=== PATIENT | female | born 2005 | race Caucasian/White ===

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

== ENCOUNTER 2024-06-20 22:49 | Emergency (ER) | payer OTHER, SELFPAY ==
--- OUTSIDE RECORDS SUMMARY | 2024-06-20 22:54 | XMS REPORT | Continuity of Care Document ---
Author Name Unknown Address [address] [facility] [address] [place] [address] [facility] Address [address] [facility] 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 Cost Estimator Name Role Phone PORFIRIO Bonner [facility], [facility] Care Physician Unavailable Amanda Light Attending Clinician [phone] AMANDA MCCURDY Attending Clinician Unavailabl e SAV Attending Clinician Unavaila ble SAV Admitting Clinician Unavaila ble Payers Payer Name Policy Type Policy Number Effective Date Expirati on Date Source CIGILENE II [id number] 2021 00:00:00 Problems Condition Name Condition Details Condition Category Status Onset Date Resolution Date Last Treatment Date Treating Clinician Comments Source No known active problems No known active problems Disease [facility] Allergies, Adverse Reactions, Alerts Allergy Name Allergy Type Status Severity Reaction(s) Onset Date Inactive Date Treating Clinician Comments Source NO KNOWN ALLERGIE S Drug Class Active [facility] Social History Social Habit Start Date Stop Date Quantity Comments Source Exposure to SARS-CoV-2 (event) Not sure [facility] Sex Assigned At 2005 00:00:00 2005 00:00:00 [facility] Smoking Status Start Date Stop Date Source Unknown if ever smoked Unive [facility] Medications Ordered Medication Name Filled Medication Name Start Date Stop Date Current Medication? Ordering Clinician Indication Dosage Frequency Signature (SIG) Comments Components Source meclizine 25 mg tablet 11-04 00:00: 00 Yes [id number] 25mg Take 1 tablet by mouth 3 (three) times daily as needed for Dizziness. [facility] ARIPiprazol e 15 mg tablet 10-12 00:00: 00 Yes 15mg Take 15 mg by mouth daily. [facility] escitalopra m oxalate 20 mg tablet 10-05 00:00: 00 Yes 20mg Take 20 mg by mouth at bedtime. [facility] Vital Signs Vital Name Observation Time Observation Value Comments Evert becker Systolic blood pressure 2021-11-04 17:12:00 111 mm[Hg] [facility] Diastolic blood pressure 2021-11-04 17:12:00 66 mm[Hg] [facility] Heart rate 2021-11-04 17:12:00 76 /min [facility] Body temperature 2021-11-04 17:12:00 36.94 Alyx [facility] Respiratory rate 2021-11-04 17:12:00 18 /min [facility] Body height 2021-11-04 17:12:00 153 cm [facility] Body weight 2021-11-04 17:12:00 86.909 kg [facility] BMI 2021-11-04 17:12:00 37.13 kg/m2 [facility] Body mass index (BMI) [Percentile] Per age and sex 2021-11-04 17:12:00 98.65 % [facility] Oxygen saturation in Arterial blood by Pulse oximetry 2021-11-04 17:12:00 100 /min [facility] Procedures Procedure Date / Time Performed Performing Clinicia n Source POCT MOLECULAR STREP 2021-11-04 17:19:00 Lily Mccurdy [facility] Encounters Start Date/Time End Date/Time Encounter Type Admission Type Attending Clinicians Care Facility Care Department Encounter ID Source 2022-09-07 15:48:10 2022-09-07 15:48:10 Outpatient [facility] [id number] Porfirio Marsh 2022-05-11 14:53:11 2022-05-11 14:53:11 Outpatient [facility] [id number] Porfirio Marsh 2022-05-09 08:01:24 2022-05-09 08:01:[address] [facility] [id number] Porfirio Marsh 2021-11-04 12:00:00 2021-11-04 12:56:59 [facility] [id number] [facility] 2021-11-04 12:00:00 2021-11-04 12:56:59 Outpatient R CALLI, [facility] [id number] [facility] 2021-08-24 04:37:00 2021-08-24 04:37:00 Outpatient AKANKSHA CONTRERAS [facility] [id number] [facility] Results Test Description Test Time Test Comments Results Result Co mments Source COMPREHENSIVE METABOLIC [id number] 03:01:08* Test Item Value Reference Range Interpretation Comme nts GLUCOSE (test code = 2217) 84 MG/DL 70-99 BUN (test code = 2208) 7 MG/DL 5-18 CREATININE (test code = 2214) 0.65 MG/DL 0.50-1.10 eGFR (2020 CKD-EPI) (test code = 84758) NO CALC ML/MIN/1.73 >60 NOTE: 2020 CKD-EPI [...] RATIO 1.0-2.6 BILIRUBIN, TOTAL (test code = 7) 0.5 MG/DL See_Comment [Automated me ssage] The system which generated this result transmitted reference range: <=1.2. The reference range was not used to interpret this result as normal/abnormal. ALKALINE PHOSPHATASE (test code = 2203) 88 U/L 53-138 AST (test code = 2218) 16 U/L 9-48 ALT (test code = 2219) 19 U/L 5-45 LIPID [id number] 03:01:08* Test Item Value Reference Range Interpretation Comme nts CHOLESTEROL (test code = 0) 138 MG/DL <170 TRIGLYCERIDES (test code = 223) 90 MG/DL <90 H HDL CHOLESTEROL (test code = 0) 36 MG/DL >45 L CALC LDL CHOL (test code = 2236) 84 MG/DL <110 NOTE: CALCULATED LDL IS BASED ON EARLINE-POLANCO METHOD WHICHINCLUDES ADJUSTABLE TRIGLYCERIDE:VLDL CHOLESTEROL RATIO.THIS FACTOR VARIES BY MEASURED TRIGLYCERIDE AND NON-HDLCHOLESTEROL CONCENTRATIONS WITH INCREASED CALCULATED LDL SEENIN HIGHER TRIGLYCERIDE OR LOWER NON-HDL SPECIMENS. FOR MOREINFORMATION, SEE CLIENT ANNOUNCEMENT AT [email or web address] RISK RATIO LDL/HDL (test code = 2238) 2.33 RATIO <3.22 HEMOGLOBIN [id number] 02:23:14* Test Item Value Reference Range Interpretation Comme nts HEMOGLOBIN A1c (test code = 22899) 5.2 % 4.2-5.6 CBC W/AUTO DIFF WITH [id number] 02:02:15* Test Item Value Reference Range Interpretation [...] = 1065) 0.0 /100 WBC'S See_Comment [Automated Claritya ge] The system which generated this result [...] 0.00-0.10 ABS NUCLEATED RBCS (test code = 42422) 0.00 K/UL 0.00-0.13 POCT MOLECULAR [id number] 17:29:54* Test Item Value Reference Range Interpretation Comme nts POCT Molecular Strep (test c ode = 96497-2) Negative Negative Lab Interpretation (test cod e = 21405-1) Normal [facility]
[2024-06-20] MEDS ORDERED: KETOROLAC 30 MG/ML INJ ONE (23:48)
[2024-06-20] MEDS ORDERED: ONDANSETRON 4 MG/2 ML VIAL ONE (23:48)
[2024-06-20] MEDS ORDERED: NA CHLORIDE 0.9% 1,000 ML ONE (23:49)
[2024-06-21 00:10] LABS: Specific Gravity 1.016 (1.005-1.030); Sqamous Epithelial <5 /HPF (None Seen); Urine Bacteria None Seen /HPF (<20); Urine Bilirubin NEGATIVE (Negative); Urine Blood 3+ (Negative); Urine Clarity Turbid (Clear); Urine Color Light-Yellow (Yellow); Urine Culture Reflex Order NOT NEEDED; Urine Glucose NEGATIVE (Negative); Urine Ketones 1+ (Negative); Urine Microscopic Reflex YN ORDER UMIC; Urine Mucus Slight /HPF (None Seen); Urine Nitrite NEGATIVE (Negative); Urine Protein TRACE (Negative); Urine Urobilinogen Normal (Normal); Urine WBC <5 /HPF (<5); Urine pH 5.5 (5.0-7.0)
[2024-06-21 00:11] LABS: Specific Gravity 1.016 (1.005-1.030)
[2024-06-21 00:14] LABS: Absolute Eosinophils 0.1 K/uL (0-0.5); Absolute Lymphocytes (CBC) 2.6 K/uL (0.7-4.9); Absolute Monocytes 0.7 K/uL (0.1-1.3); Absolute Neutrophil 5.9 K/uL (1.8-8.0); Basophils % 0.4 % (0-1.3); Hemoglobin 15.9 g/dL (12.0-15.0); Lymphocytes % 27.6 % (15.3-44.8); MCH 29.6 pg (27.0-35.0); MCHC 33.1 g/dL (32.0-36.0); MCV 89.3 fL (80-100); MPV 10.9 fL (7.6-11.3); Monocytes % 7.8 % (3.3-12.3); Neutrophils % 63.2 % (41.7-73.7); Platelets 193 thou/uL (152-406); RBC Red Blood Cell Count 5.38 M/uL (3.86-4.86); Red Cell Distribution Width 13.7 % (12.1-15.2)
[2024-06-21] MEDS ORDERED: NA CHLORIDE 0.9% 100 ML ONE (00:22)
[2024-06-21] MEDS ORDERED: METHOCARBAMOL 1,000 MG/10 ML VIAL ONE (00:22)
[2024-06-21 00:28] LABS: Albumin 4.4 g/dL (3.4-5.0); Albumin/Globulin Ratio 1.1 (1.1-1.8); Anion Gap 8.1 mEq/L (5.0-15.0); Bilirubin Total 0.6 mg/dL (0.2-1.0); Potassium 3.1 mEq/L (3.5-5.1); Protein, Total 8.4 g/dL (6.4-8.2)
--- NOTE | 2024-06-21 01:28 | EDPHYS ---
Physician Documentation [facility] Name: Jazmín Tobin Age: 18 yrs Sex: Female : 2005 Arrival Date: 06/20/2024 Time: 22:49 Bed 20 Private MD: ED Physician Ant Zamudio HPI: 06/20 23:45 This 18 yrs old Female presents to ER via Ambulatory with complaints of Low Back Pain. cp 23:45 The patient presents with pain that is acute, with no known mechanism of injury. The cp symptoms are located in the right mid back and right flank. The pain does not radiate. 23:45 The problem was sustained from unknown cause. cp 23:45 Onset: The symptoms/episode began/occurred yesterday. Modifying factors: the patient cp symptoms are aggravated by movement. Associated signs and symptoms: Pertinent negatives: constipation, dysuria, fever, hematuria, incontinence, numbness, weakness. Severity of symptoms: in the emergency department the symptoms are unchanged, despite home interventions. 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 - Infectious Disease History:: Denies. - Social history:: Smoking status: Reported history of juuling and/or vaping. ROS: 23:50 Constitutional: Negative for body aches, chills, fever, poor PO intake, cp 23:50 Eyes: Negative for injury, pain, redness, and discharge, cp 23:50 ENT: Negative for drainage from ear(s), ear pain, sore throat, difficulty swallowing, difficulty handling secretions, 23:50 Cardiovascular: Negative for chest pain, 23:50 Respiratory: Negative for cough, shortness of breath, wheezing, 23:50 Abdomen/GI: Negative for abdominal pain, vomiting, diarrhea, constipation, 23:50 Back: Positive for flank pain, on the right, of the right mid back, Negative for injury or acute deformity, decreased range of motion, 23:50 : Negative for urinary symptoms, 23:50 Neuro: Negative for altered mental status, dizziness, headache, weakness, 23:50 All other systems are negative, Exam: 23:55 Constitutional: The patient appears in no acute distress, alert, awake, non-toxic, well cp developed, well nourished, 23:55 Head/Face: Normocephalic, atraumatic. cp 23:55 Eyes: Periorbital structures: appear normal, Conjunctiva: normal, no exudate, no injection, Sclera: no appreciated abnormality, Lids and lashes: appear normal, bilaterally, 23:55 ENT: External ear(s): are unremarkable, Nose: is normal, Mouth: Lips: moist, Oral mucosa: moist, Posterior pharynx: Airway: no evidence of obstruction, patent, 23:55 Neck: ROM/movement: is normal, is supple, without pain, no range of motions limitations, 23:55 Chest/axilla: Inspection: normal, 23:55 Cardiovascular: Rate: normal, Rhythm: regular, Edema: is not appreciated, 23:55 Respiratory: the patient does not display signs of respiratory distress, Respirations: normal, no use of accessory muscles, no retractions, labored breathing, is not present, Breath sounds: are clear throughout, no decreased breath sounds, no stridor, no wheezing, 23:55 Abdomen/GI: Inspection: abdomen appears normal, Palpation: abdomen is soft and non-tender, in all quadrants, 23:55 Back: pain, that is moderate, of the right mid back, 23:55 Neuro: Gait: is steady, at a normal pace, without difficulty, Vital Signs: 23:17 BP 143 / 80; Pulse 78; Resp 18; Temp 98.2; Pulse Ox 100% ; Weight 74.34 kg; os 11 00:00 BP 122 / 76; Pulse 76; Resp 17; Temp 98(O); Pulse Ox 100% on R/A; Pain 8/10; rg5 01:04 BP 112 / 79; Pulse 80; Resp 17; Temp 98; Pulse Ox 100% on R/A; Pain 0/10; rg5 11 00:00 Pain Scale: Adult rg5 01:04 Pain Scale: Adult rg5 MDM: 06/20 23:34 Medical Screening Exam initiated cp 06/21 00:00 Differential diagnosis: sciatica, Herniated disc UTI, pyelonephritis, kidney stone, cp muscle strain. 01:26 Data reviewed: vital signs, nurses notes, lab test result(s), radiologic studies, CT cp scan, and as a result, I will discharge patient. 01:26 I considered the following discharge prescriptions or medication management in the emergency department Medications were administered in the Emergency Department. See MAR. Counseling: I had a detailed discussion with the patient and/or guardian regarding the historical points, exam findings, and any diagnostic results supporting the discharge/admit diagnosis, lab results, radiology results, to return to the emergency department if symptoms worsen or persist or if there are any questions or concerns that arise at home. Response to treatment: the patient's symptoms have markedly improved after treatment, and as a result, I will discharge patient. 06/20 23:38 Order name: CBC with Diff; Complete Time: 00:16 06/21 00:16 Interpretation: Normal except: RBC 5.38; HGB 15.9; HCT 48.0. 06/20 23:38 Order name: CMP; Complete Time: 00:31 06/21 00:31 Interpretation: Normal except: K 3.1; GLUC 136; AST 14; TP 8.4; GLOB 4.0. 06/20 23:38 Order name: Lipase; Complete Time: 00:31 06/20 23:38 Order name: Test, Urine; Complete Time: 00:16 06/20 23:38 Order name: Urinalysis w/ reflexes; Complete Time: 00:16 06/21 00:17 Order name: CT Stone Protocol 06/20 23:38 Order name: IV Saline Lock; Complete Time: 23:51 06/20 23:38 Order name: Labs collected and sent; Complete Time: 23:51 Administered Medications: 00:05 Drug: TORadol - Ketorolac IVP 15 mg IVP once; may give if test negative rg5 Route: IVP; Site: left antecubital; 00:27 Follow up: Response: No adverse reaction; Pain is decreased rg5 00:05 Drug: Ondansetron IVP 4 mg IVP once; over 2 minutes Route: IVP; Site: left antecubital; rg5 00:27 Follow up: Response: No adverse reaction rg5 00:05 Drug: NS 0.9% IV 1000 ml IV at 1 bolus Per protocol; to be given as a bolus over 60 rg5 minutes Route: IV; Rate: 1 bolus; Site: left antecubital; 01:00 Follow up: IV Status: Completed infusion; IV Intake: 1000ml rg5 00:15 Drug: Methocarbamol IVPB 1 grams IVPB once over 1 hrs; (mix in NS 100 mL) Route: IVPB; rg5 Infused Over: 1 hrs; Site: left antecubital; 01:28 Follow up: IV Status: Completed infusion; IV Intake: 100ml rg5 01:28 Drug: Potassium PO Effervescent Tablet 50 mEq PO once; dissolve in 4 ounces of water or rg5 juice Route: PO; 01:40 Follow up: Response: No adverse reaction rg5 Disposition Summary: 06/21/24 01:27 Discharge Ordered Notes: Location: Home cp Problem: new cp Symptoms: have improved cp Condition: Stable cp Diagnosis - Low back pain cp Followup: cp - With: Private Physician - When: 2 - 3 days - Reason: Worsening of condition Discharge Instructions: - Discharge Summary Sheet cp - Acute Back Pain, Adult cp - Heat Therapy cp - Back Exercises cp Forms: - Medication Reconciliation Form cp - Antibiotic Education cp - Prescription Opioid Use cp - Patient Portal Instructions cp - Leadership Thank You Letter cp Prescriptions: - Anaprox DS 550 mg Oral Tablet - take 1 tablet ORAL route every 12 hours As needed; 20 tablet; Refills: 0, cp Product Selection Permitted - orphenadrine citrate 100 mg Oral Tablet Sustained Release - take 1 tablet ORAL route 2 times per day As needed; 20 tablet; Refills: 0, cp Product Selection Permitted Signatures: Dispatcher [employer] EDMS Ajit Rasheed PA PA cp Dinah Stone RN RN os Joon Geller RN RN rg5 Corrections: (The following items were deleted from the chart) 06/20 23:39 23:39 CBC+H.LAB.BRZ ordered. EDMS EDMS 23:39 23:39 COMPREHENSIVE METABOLIC PANEL+C.LAB.BRZ ordered. EDMS EDMS 23:39 23:39 LIPASE+C.LAB.BRZ ordered. EDMS EDMS 23:39 23:39 Test, Urine+UC.LAB.BRZ ordered. EDMS EDMS 23:39 23:39 Urinalysis+U.LAB.BRZ ordered. EDMS EDMS
--- NOTE | 2024-06-21 01:28 | ER ---
Nurse's Notes [facility] Name: Jazmín Tobin Age: 18 yrs Sex: Female : 2005 Arrival Date: 06/20/2024 Time: 22:49 Bed 20 Private MD: Diagnosis: Low back pain Presentation: 06/20 23:17 Chief complaint: Patient states: Patient presents in the ED c/o right lower back/flank os pain for the past 30 hrs. Coronavirus screen: At this time, the client does not indicate any symptoms associated with coronavirus-19. Ebola Screen: No symptoms or risks identified at this time. Initial Sepsis Screen: Does the patient meet any 2 criteria? No. Patient's initial sepsis screen is negative. Does the patient have a suspected source of infection? No. Patient's initial sepsis screen is negative. Risk Assessment: Do you want to hurt yourself or someone else? Patient reports no desire to harm self or others. Onset of symptoms was June 19, 2024. 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 - Infectious Disease History:: Denies. - Social history:: Smoking status: Reported history of juuling and/or vaping. Screenin/23 00:00 [facility] ED Fall Risk Assessment (Adult) History of falling in the last 3 months, rg5 including since admission Confusion or Disorientation No (0 pts) Intoxicated or Sedated No (0 pts) Impaired Gait No (0 pts) Mobility Assist Device Used No (0 pt) Altered Elimination No (0 pt) Score/Fall Risk Level 0 - 2 = Low Risk Oriented to surroundings, Maintained a safe environment, Hourly rounding (assess needs \T\ fall precautionary measures) done. Abuse screen: Denies threats or abuse. Nutritional screening: No deficits noted. Tuberculosis screening: No symptoms or risk factors identified. Assessment: 00:00 General: Appears in no apparent distress. comfortable, Behavior is calm, cooperative, rg5 appropriate for age. 00:00 Pain: Complains of pain in lumbar area Pain currently is 8 out of 10 on a pain scale. rg5 Quality of pain is described as aching. Neuro: Level of Consciousness is awake, alert, Oriented to person, place, time. Cardiovascular: Denies chest pain, Heart tones S1 S2 Patient's skin is warm and dry. Respiratory: Airway is patent Trachea midline Respiratory effort is even, unlabored, Respiratory pattern is regular, symmetrical. GI: Abdomen is round non-distended, Abd is soft and non tender. : No signs and/or symptoms were reported regarding the genitourinary system. EENT: No deficits noted. Derm: Skin is intact, Skin is dry, Skin is normal. Musculoskeletal: Circulation, motion, and sensation intact. Range of motion: intact in all extremities. Vital Signs: 06/20 23:17 BP 143 / 80; Pulse 78; Resp 18; Temp 98.2; Pulse Ox 100% ; Weight 74.34 kg; os 06/21 00:00 BP 122 / 76; Pulse 76; Resp 17; Temp 98(O); Pulse Ox 100% on R/A; Pain 8/10; rg5 01:04 BP 112 / 79; Pulse 80; Resp 17; Temp 98; Pulse Ox 100% on R/A; Pain 0/10; rg5 06/21 00:00 Pain Scale: Adult rg5 01:04 Pain Scale: Adult rg5 ED Course: 06/20 22:55 Patient arrived in ED. gm2 22:57 Ajit Rasheed PA is PHCP. cp 22:58 Ant Zamudio MD is Attending Physician. cp 23:20 Triage completed. os 23:38 Joon Geller, SEUN is Primary Nurse. rg5 23:51 CBC with Diff Sent. af3 23:51 CMP Sent. af3 23:51 Lipase Sent. af3 23:51 Test, Urine Sent. af3 23:51 Urinalysis w/ reflexes Sent. af3 23:51 Inserted saline lock: 20 gauge in left antecubital area, using aseptic technique. Blood af3 collected. Flushed with 10 mL NS. 06/21 00:00 No provider procedures requiring assistance completed. rg5 00:00 Patient has correct armband on for positive identification. Bed in low position. Call rg5 light in reach. Side rails up X 1. Door closed. Noise minimized. 00:00 Arm band placed on. rg5 00:48 CT Stone Protocol In Process Unspecified. EDMS 01:41 IV discontinued, bleeding controlled, No redness/swelling at site. Pressure dressing rg5 applied. :41 Provided Education on: post er care. rg5 Administered Medications: 00:05 Drug: TORadol - Ketorolac IVP 15 mg IVP once; may give if test negative rg5 Route: IVP; Site: left antecubital; 00:27 Follow up: Response: No adverse reaction; Pain is decreased rg5 00:05 Drug: Ondansetron IVP 4 mg IVP once; over 2 minutes Route: IVP; Site: left antecubital; rg5 00:27 Follow up: Response: No adverse reaction rg5 00:05 Drug: NS 0.9% IV 1000 ml IV at 1 bolus Per protocol; to be given as a bolus over 60 rg5 minutes Route: IV; Rate: 1 bolus; Site: left antecubital; 01:00 Follow up: IV Status: Completed infusion; IV Intake: 1000ml rg5 00:15 Drug: Methocarbamol IVPB 1 grams IVPB once over 1 hrs; (mix in NS 100 mL) Route: IVPB; rg5 Infused Over: 1 hrs; Site: left antecubital; 01:28 Follow up: IV Status: Completed infusion; IV Intake: 100ml rg5 01:28 Drug: Potassium PO Effervescent Tablet 50 mEq PO once; dissolve in 4 ounces of water or rg5 juice Route: PO; 01:40 Follow up: Response: No adverse reaction rg5 Medication: 00:00 VIS not applicable for this client. rg5 Intake: 01:00 IV: 1000ml; Total: 1000ml. rg5 01:28 IV: 100ml; Total: 1100ml. rg5 Outcome: :27 Discharge ordered by . marvin 01:41 Discharged to home ambulatory, rg5 01:41 Condition: stable 01:41 Discharge instructions given to patient, Instructed on discharge instructions, follow up and referral plans. Demonstrated understanding of instructions, follow-up care, medications, Prescriptions given X 2, 01:42 Patient left the ED. rg5 Signatures: Dispatcher [employer] EDWV Ajit Rasheed PA PA cp Sotiri, Orest, RN RN os Nisa Antony gm2 Joon Geller RN RN rg5 Wilson, Rocio af3
[2024-06-21] MEDS ORDERED: POTASSIUM 25 MEQ EFFERV TAB ONE (01:32)
--- NOTE | 2024-06-21 01:49 | RAD REPORT ---
CLINICAL HISTORY: Flank pain. COMPARISON: CT Abdomen Pelvis 05/06/2018. TECHNIQUE: CT ABDOMEN PELVIS WITHOUT IV CONTRAST on 06/21/2024 12:17 AM WELDER 2ND SHIFT This exam was performed according to our departmental dose-optimization program, which includes autom ated exposure control, adjustment of the mA and/or kV according to patient size and/or use of iterative reconstruction technique. FINDINGS: Lower lungs are clear. Abdomen: The liver is normal in appearance. There is no biliary dilatation. Gallbladder is normal in appearance. The pancreas and spleen are normal in appearance. The adrenal glands and kidneys are unremarkable. Abdominal aorta is normal in course and caliber without aneurysm. There is no free air. There is no r etroperitoneal adenopathy. Pelvis: There is no bowel obstruction. Urinary bladder is unremarkable. There is no free fluid. Uteru s is normal in size. Appendix is normal. Skeleton: There are no acute osseous findings. No suspicious bony lesions. IMPRESSION: No acute process. Electronically signed by: Juan José Moss MD 06/21/2024 01:14 AM WELDER 2ND SHIFT Due to temporary technical issues with the PACS/SPO Medical reporting system, reports are being fly d by the in-house radiologist without review as a courtesy to ensure prompt reporting the interpreting radiologist is fully responsible for the content of the report. Transcribed Date/Time: 06/21/2024 1:49 AM
[2024-06-21 06:38] VITALS: O2SAT 100
[2024-06-21 06:43] VITALS: TEMP 98
[2024-06-21 06:45] VITALS: BP 112/79
== END 2024-06-21 01:42 | disposition home or self-care (01) ==
LOC: ER 22:49
DX: M54.50 Low back pain, unspecified (principal)
CPT/HCPCS: 36415; 74176; 76377; 80053; 81001; 81025; 83690; 85025; J2405; J2800; J7030

== ENCOUNTER 2024-07-30 06:50 | Emergency (ER) | payer SELFPAY ==
--- OUTSIDE RECORDS SUMMARY | 2024-07-30 06:53 | XMS REPORT | Continuity of Care Document ---
Author Name Unknown Address [address] [place] [address] [facility] Address [address] [place] [address] Care Team Providers Care Living Specialist Name Role Phone PORFIRIO Bonner [facility], [facility] Care Physician Unavailable Amanda Light Attending Clinician AMANDA MCCURDY Attending Clinician Unavailabl e SAV Attending Clinician Unavaila ble SAV Admitting Clinician Unavaila ble Payers Payer Name Policy Type Policy Number Effective Date Expirati on Date Source CIG[employer] II [id number] 2021 00:00:00 Problems Condition Name Condition Details Condition Category Status Onset Date Resolution Date Last Treatment Date Treating Clinician Comments Source No known active problems No known active problems Disease [facility] Allergies, Adverse Reactions, Alerts Allergy Name Allergy Type Status Severity Reaction(s) Onset Date Inactive Date Treating Clinician Comments Source NO KNOWN ALLERGIE S Drug Class Active [facility] Social History Social Habit Start Date Stop Date Quantity Comments Source Exposure to SARS-CoV-2 (event) Not sure [facility] Sex Assigned At 2005 00:00:00 2005 00:00:00 [facility] Smoking Status Start Date Stop Date Source Unknown if ever smoked [facility]ive [facility] Medications Ordered Medication Name Filled Medication Name Start Date Stop Date Current Medication? Ordering Clinician Indication Dosage Frequency Signature (SIG) Comments Components Source meclizine 25 mg tablet 11-04 00:00: 00 Yes [id number] 25mg Take 1 tablet by mouth 3 (three) times daily as needed for Dizziness. [facility] ARIPiprazol e 15 mg tablet 10-12 00:00: 00 Yes 15mg Take 15 mg by mouth daily. [facility] escitalopra m oxalate 20 mg tablet 10-05 00:00: 00 Yes 20mg Take 20 mg by mouth at bedtime. [facility] Vital Signs Vital Name Observation Time Observation Value Comments S rosita Systolic blood pressure 2021-11-04 17:12:00 111 mm[Hg] [facility] Diastolic blood pressure 2021-11-04 17:12:00 66 mm[Hg] [facility] Heart rate 2021-11-04 17:12:00 76 /min [facility] Body temperature 2021-11-04 17:12:00 36.94 Alyx [facility] Respiratory rate 2021-11-04 17:12:00 18 /min [facility] Body height 2021-11-04 17:12:00 153 cm [facility] Body weight 2021-11-04 17:12:00 86.909 kg [facility] BMI 2021-11-04 17:12:00 37.13 kg/m2 [facility] Body mass index (BMI) [Percentile] Per age and sex 2021-11-04 17:12:00 98.65 % [facility] Oxygen saturation in Arterial blood by Pulse oximetry 2021-11-04 17:12:00 100 /min [facility] Procedures Procedure Date / Time Performed Performing Clinicia n Source POCT MOLECULAR STREP 2021-11-04 17:19:00 Lily Mccurdy [facility] Encounters Start Date/Time End Date/Time Encounter Type Admission Type Attending Clinicians Care Facility Care Department Encounter ID Source 2022-09-07 15:48:10 2022-09-07 15:48:10 Outpatient [facility] [id number] Porfirio Marsh 2022-05-11 14:53:11 2022-05-11 14:53:11 Outpatient [facility] [id number] Porfirio Marsh 2022-05-09 08:01:24 2022-05-09 08:01:24 Outpatient [facility] [id number] Porfirio Marsh 2021-11-04 12:00:00 2021-11-04 12:56:59 Urgent Care Amanda Mccurdy [facility] [id number] [facility] 2021-11-04 12:00:00 2021-11-04 12:56:59 Outpatient R CALLI [facility] [id number] [facility] 2021-08-24 04:37:00 2021-08-24 04:37:00 Outpatient AKANKSHA CONTRERAS [facility] [id number] Program Results Test Description Test Time Test Comments Results Result Co mments Source COMPREHENSIVE METABOLIC [id number] 03:01:08* Test Item Value Reference Range Interpretation Comme nts GLUCOSE (test code = 2217) 84 MG/DL 70-99 BUN (test code = 2208) 7 MG/DL 5-18 CREATININE (test code = 2214) 0.65 MG/DL 0.50-1.10 eGFR (2020 CKD-EPI) (test code = 67337) NO CALC ML/MIN/1.73 >60 NOTE: 2020 CKD-EPI [...] code = 2219) 19 U/L 5-45 LIPID [id number] 03:01:08* Test Item Value Reference Range Interpretation [...] SPECIMENS. FOR MOREINFORMATION, SEE CLIENT ANNOUNCEMENT AT [email or web address] RISK RATIO LDL/HDL (test code = 2238) 2.33 RATIO <3.22 HEMOGLOBIN [id number] 02:23:14* Test Item Value Reference Range Interpretation Comme nts HEMOGLOBIN A1c (test code = 30968) 5.2 % 4.2-5.6 CBC W/AUTO DIFF WITH [id number] 02:02:15* Test Item Value Reference Range Interpretation [...] = 1065) 0.0 /100 WBC'S See_Comment [Automated [employer]] The system which generated this result [...] 0.00-0.10 ABS NUCLEATED RBCS (test code = 81461) 0.00 K/UL 0.00-0.13 POCT MOLECULAR [id number] 17:29:54* Test Item Value Reference Range Interpretation Comme nts POCT Molecular Strep (test c ode = 30512-4) Negative Negative Lab Interpretation (test cod e = 64406-7) Normal [facility]
[2024-07-30] MEDS ORDERED: NA CHLORIDE 0.9% 1,000 ML ONE (07:21)
[2024-07-30] MEDS ORDERED: TDAP (DIPHTH,PERTUSS(ACELL),TET VAC) 0.5 ML VIAL IMVAC ONE (07:21)
[2024-07-30] MEDS ORDERED: LORazepam 2 MG/ML VIAL ONE (07:21)
[2024-07-30 07:37] LABS: Specific Gravity < 1.005 (1.005-1.030)
[2024-07-30 07:39] LABS: Specific Gravity < 1.005 (1.005-1.030); Sqamous Epithelial <5 /HPF (None Seen); Urine Bacteria None Seen /HPF (<20); Urine Bilirubin NEGATIVE (Negative); Urine Blood 3+ (OVER) (Negative); Urine Clarity Extremely Turbid (Clear); Urine Color Colorless (Yellow); Urine Culture Reflex Order NOT NEEDED; Urine Glucose NEGATIVE (Negative); Urine Ketones NEGATIVE (Negative); Urine Microscopic Reflex YN ORDER UMIC; Urine Nitrite NEGATIVE (Negative); Urine Protein NEGATIVE (Negative); Urine RBC <5 /HPF (None Seen); Urine Urobilinogen Normal (Normal); Urine WBC <5 /HPF (<5); Urine pH 5.5 (5.0-7.0)
[2024-07-30 07:49] LABS: Absolute Lymphocytes (CBC) 0.9 K/uL (0.7-4.9); Absolute Monocytes 0.8 K/uL (0.1-1.3); Absolute Neutrophil 9.2 K/uL (1.8-8.0); Basophils % 0.2 % (0-1.3); Hematocrit 49.2 % (36.0-45.0); Hemoglobin 16.4 g/dL (12.0-15.0); MCH 29.5 pg (27.0-35.0); MCHC 33.3 g/dL (32.0-36.0); MCV 88.6 fL (80-100); Monocytes % 6.9 % (3.3-12.3); Neutrophils % 84.9 % (41.7-73.7); Platelets 258 thou/uL (152-406); RBC Red Blood Cell Count 5.55 M/uL (3.86-4.86); Red Cell Distribution Width 13.7 % (12.1-15.2)
[2024-07-30 07:54] LABS: Barbiturates NEGATIVE (NEGATIVE); Benzodiazepines NEGATIVE (NEGATIVE); Cocaine POSITIVE (NEGATIVE); METHAMPHETAM NEGATIVE (NEGATIVE); Methadone NEGATIVE (NEGATIVE); Opiates NEGATIVE (NEGATIVE); Phencyclidine NEGATIVE (NEGATIVE); THC Cannibis POSITIVE (NEGATIVE)
--- NOTE | 2024-07-30 07:58 | RAD REPORT ---
EXAM: XR RIGHT HAND HISTORY: Pain. R hand pinky injury COMPARISON: None TECHNIQUE: Multiple projections of the right hand submitted. FINDINGS: No evidence of acute fracture or dislocation. Joint alignment is maintained. Soft tissue s welling affects the fifth finger. No radiopaque foreign body seen..
[2024-07-30 08:08] LABS: PT Prothrombin Time 12.3 SECONDS (9.4-12.5); PTT, Activated Partial Thromb 30.8 SECONDS (24.3-36.9); Protime INR 1.1
[2024-07-30 08:10] LABS: ALT/SGPT 19 U/L (13-56); AST/SGOT 18 U/L (15-37); Albumin 4.5 g/dL (3.4-5.0); Albumin/Globulin Ratio 1.2 (1.1-1.8); Alkaline Phosphatase 84 U/L (45-117); Anion Gap 14.4 mEq/L (5.0-15.0); BUN Blood Urea Nitrogen 5 mg/dL (7-18); Bicarbonate 20 mEq/L (21-32); Bilirubin Direct 0.2 mg/dL (0-0.2); Bilirubin Indirect, Calculated 0.3 mg/dL (0.2-0.8); Bilirubin Total 0.5 mg/dL (0.2-1.0); Globulin 3.8 g/dL (2.3-3.5); Glomerular Filtration Rate 98 ml/min (=/>90); Glucose Level 120 mg/dL (74-106); Potassium 3.4 mEq/L (3.5-5.1); Protein, Total 8.3 g/dL (6.4-8.2); Sodium Level 140 mEq/L (136-145)
--- NOTE | 2024-07-30 08:14 | ER ---
Nurse's Notes [facility] Name: Jazmín Tobin Age: 18 yrs Sex: Female : 2005 Arrival Date: 07/30/2024 Time: 06:50 Bed 13 Private MD: Diagnosis: Finger Contusion Presentation: 07/30 07:00 Chief complaint: Patient states: I GOT MY RIGHT HAND SLAM WITH MY CAR DOOR. LACERATION ha1 ON THE RIGHT PINKY. 07:00 Coronavirus screen: Client denies travel out of the [place] in the last 14 days. Ebola ha1 Screen: No symptoms or risks identified at this time. Initial Sepsis Screen: Does the patient meet any 2 criteria? No. Patient's initial sepsis screen is negative. Does the patient have a suspected source of infection? No. Patient's initial sepsis screen is negative. Risk Assessment: Do you want to hurt yourself or someone else? Patient reports no desire to harm self or others. Onset of symptoms was July 30, 2024. 07:00 Method Of Arrival: Ambulatory ha1 07:00 Acuity: ROMAN 4 ha1 Triage Assessment: 07:09 General: Appears uncomfortable, Behavior is cooperative. Pain: Complains of pain in ha1 right hand Pain does not radiate. Pain currently is 9 out of 10 on a pain scale. Quality of pain is described as aching. Neuro: Level of Consciousness is awake, alert, obeys commands, Oriented to person, place, time, situation. Cardiovascular: Patient's skin is warm and dry. Respiratory: Airway is patent Respiratory effort is even, unlabored, Respiratory pattern is regular, symmetrical. Musculoskeletal:. Injury Description: Laceration sustained to palmar aspect of distal phalanx of right little finger is 2.6 to 7.5 cm long, was sustained 2-4 hours ago. Historical: - Allergies: 07:09 No Known Allergies; ha1 - PMHx: 07:09 Depression; Heart Murmur; ha1 - Immunization history:: Adult Immunizations up to date. - Infectious Disease History:: Denies. - Social history:: Smoking status: Reported history of juuling and/or vaping. Patient uses street drugs, marijuana. Screenin:55 [facility] ED Fall Risk Assessment (Adult) History of falling in the last 3 months, rs5 including since admission No falls in past 3 months (0 pts) Confusion or Disorientation No (0 pts) Intoxicated or Sedated No (0 pts) Impaired Gait No (0 pts) Mobility Assist Device Used No (0 pt) Altered Elimination No (0 pt) Score/Fall Risk Level 0 - 2 = Low Risk Oriented to surroundings, Maintained a safe environment. Abuse screen: Denies threats or abuse. Nutritional screening: No deficits noted. Tuberculosis screening: No symptoms or risk factors identified. Assessment: 06:54 Reassessment: sitter at bedside, all items and cords removed from room. rs5 06:54 Reassessment: pt arrived to room. rs5 06:55 General: Appears in no apparent distress. uncomfortable, Behavior is cooperative, rs5 agitated. 06:55 Reassessment:. Pain: Complains of pain in right pinky Pain currently is 3 out of 10 on rs5 a pain scale. Quality of pain is described as aching, Is continuous. Neuro: Level of Consciousness is awake, alert, obeys commands, Oriented to person, place, time, situation. Cardiovascular: Patient's skin is warm and dry. Respiratory: Airway is patent Respiratory effort is even, unlabored, Respiratory pattern is regular, symmetrical. GI: Abdomen is round non-distended, Abd is soft and non tender X 4 quads. : No signs and/or symptoms were reported regarding the genitourinary system. EENT: No signs and/or symptoms were reported regarding the EENT system. Derm: Skin is intact, Skin is pink, warm \\T\\ dry. 0.5 lac noted to right pinky, no active bleeding noted. Musculoskeletal: Range of motion: intact in all extremities. 06:55 Reassessment: To bedside CSSR-S screening, pt denies SI or HI ideation. Pt states "I rs5 told the nurse up front that I have been having thoughts of hurting myself, but i'm just upset, I got into an argument with my boyfriend earlier and I'm just upset. I definitely don't want to hurt myself, kill myself or hurt someone else" provider notified . 07:52 Reassessment: Patient and/or family updated on plan of care and expected duration. Pain rs5 level reassessed. Patient is alert, oriented x 3, equal unlabored respirations, skin warm/dry/pink. 08:22 Reassessment: Patient and/or family updated on plan of care and expected duration. Pain rs5 level reassessed. Patient is alert, oriented x 3, equal unlabored respirations, skin warm/dry/pink. Vital Signs: 07:00 BP 135 / 97; Pulse 157; Resp 19 S; Temp 98.4(O); Pulse Ox 100% on R/A; Weight 72.57 kg; ha1 Height 5 ft. 0 in. ; 08:00 BP 125 / 88; Pulse 88; Resp 17; Pulse Ox 99% on R/A; rs5 08:22 BP 127 / 79; Pulse 79; Resp 16; Pulse Ox 98% on R/A; rs5 07:00 Body Mass Index 31.25 (72.57 kg, 152.4 cm) - Percentile 94.8 % [facility] ED Course: 06:51 Patient arrived in ED. jj6 06:55 Patient has correct armband on for positive identification. Bed in low position. Call rs5 light in reach. Side rails up X2. 07:00 No provider procedures requiring assistance completed. Inserted saline lock: 20 gauge rs5 in left antecubital area, using aseptic technique. Blood collected. Flushed with 10 mL NS. 07:02 Shaquille Mchugh MD is Attending Physician. ec2 07:09 Triage completed. ha1 07:09 Lloyd Dutta, RN is Primary Nurse. rs5 07:55 Hand Right 3 View XRAY In Process Unspecified. EDMS 07:55 EKG done, by ED staff, reviewed by Shaquille Mchugh MD. em1 08:30 Provided Education on: discharge instructions . rs5 08:30 IV discontinued, intact, bleeding controlled, No redness/swelling at site. Pressure rs5 dressing applied. Administered Medications: 07:05 Drug: Ativan IVP 1 mg IVP once Route: IVP; Site: left antecubital; rs5 07:20 Follow up: Response: No adverse reaction; Pain is decreased rs5 07:10 Drug: NS 0.9% IV 1000 ml IV at 1000 ml once; to be given as a bolus over 60 minutes rs5 Route: IV; Rate: 1000 ml; Site: left antecubital; 08:07 Follow up: Response: No adverse reaction; IV Status: Completed infusion; IV Intake: rs5 999ml 07:22 Drug: Boostrix Tdap IM 0.5 ml IM once; as a single dose Route: IM; Site: left deltoid; rs5 08:00 Follow up: Response: No adverse reaction rs5 Medication: 08:33 VIS not applicable for this client. rs5 Intake: 08:07 IV: 999ml; Total: 999ml. rs5 Outcome: 08:14 Discharge ordered by . ec2 08:30 Discharged to home ambulatory, with family, rs5 08:30 Condition: stable 08:30 Discharge instructions given to patient, family, Instructed on discharge instructions, follow up and referral plans. Demonstrated understanding of instructions, follow-up care, 08:36 Patient left the ED. rs5 Signatures: Dispatcher [employer] Andrew Germain em1 Irma Wasserman jj6 Codie Hinojosa RN RN ha1 Lloyd Dutta RN RN rs5 Shaquille Mchugh MD MD ec2
--- NOTE | 2024-07-30 08:14 | EDPHYS ---
Physician Documentation [facility] Name: Jazmín Tobin Age: 18 yrs Sex: Female : 2005 Arrival Date: 07/30/2024 Time: 06:50 Bed 13 Private MD: ED Physician Shaquille Mchugh HPI: 07/30 07:11 This 18 yrs old Female presents to ER via Ambulatory with complaints of Hand ec2 Injury, Finger Injury, Suicidal Ideation, Anxiety, Depression. 07:11 Patient arrives today for evaluation of a finger injury to the right pinky finger. ec2 Accidentally caught her finger in a closing door. Patient also reports suicidal ideation, states no specific plan however has been having feelings of hopelessness and issues with her personal life.Patient with multiple alcoholic beverages tonight.. Historical: - Allergies: 07:09 No Known Allergies; ha1 - PMHx: 07:09 Depression; Heart Murmur; ha1 - Immunization history:: Adult Immunizations up to date. - Infectious Disease History:: Denies. - Social history:: Smoking status: Reported history of juuling and/or vaping. Patient uses street drugs, marijuana. ROS: 07:12 Constitutional: as per hpi ec2 Exam: 07:12 Constitutional: GEN: NAD Head: atraumatic Eyes: EOMI Ears: External ears are ec2 normal. CV: Tachycardic LUNGS: no respiratory distress ABD: non-distended SKIN: no evidence of rashes MSK: no evidence of trauma. Right hand with swelling to the pinky, small abrasion appreciated. Psych: Inebriated individual who is emotionally labile and tearful Vital Signs: 07:00 BP 135 / 97; Pulse 157; Resp 19 S; Temp 98.4(O); Pulse Ox 100% on R/A; Weight 72.57 kg; ha1 Height 5 ft. 0 in. ; 08:00 BP 125 / 88; Pulse 88; Resp 17; Pulse Ox 99% on R/A; rs5 08:22 BP 127 / 79; Pulse 79; Resp 16; Pulse Ox 98% on R/A; rs5 07:00 Body Mass Index 31.25 (72.57 kg, 152.4 cm) - Percentile 94.8 % ha MDM: 07:02 Medical Screening Exam initiated ec2 07:12 Data reviewed: vital signs, nurses notes. ED course: Patient arrives today for hand ec2 injury as well as psychiatric evaluation. Examination neuropsych findings as well as hand findings as above will obtain psych eval, radiograph, updated tetanus status as well.. 07:58 ED course: EKG independently reviewed and interpreted by me, shows sinus tachycardia, ec2 rate of 120, no acute ST segment elevations, intervals are nonactionable.. 08:12 ED course: On reassessment patient is cooperative, less emotional, has mother at ec2 bedside. Patient reports that most of her anxiousness is situational, patient appears to be cooperative in no acute distress and did not explicitly indicate a plan to harm herself and has multiple coping factors working with her. Will discharge home and have her follow-up with psychiatry. Return precautions given. 07/30 07:10 Order name: Acetaminophen; Complete Time: 08:25 ec2 07/30 07:10 Order name: Basic Metabolic Panel; Complete Time: 08:25 ec2 07/30 07:10 Order name: CBC with Diff; Complete Time: 07:59 ec2 07/30 07:10 Order name: ETOH Level; Complete Time: 08:08 ec07/30 07:10 Order name: Hepatic Function; Complete Time: 08:25 ec2 07/30 07:10 Order name: PT-INR; Complete Time: 08:08 ec2 07/30 07:10 Order name: Test, Urine; Complete Time: 07:59 ec2 07/30 07:10 Order name: Ptt, Activated; Complete Time: 08:08 ec2 07/30 07:10 Order name: Salicylate; Complete Time: 08:25 ec2 07/30 07:10 Order name: Urinalysis w/ reflexes; Complete Time: 07:59 ec2 07/30 07:10 Order name: Urine Drug Screen; Complete Time: 07:59 ec2 07/30 07:10 Order name: Hand Right 3 View XRAY; Complete Time: 07:59 ec2 07/30 07:10 Order name: EKG - Nurse/Tech; Complete Time: 07:55 ec2 07/30 07:10 Order name: IV Saline Lock; Complete Time: 08:03 ec2 07/30 07:10 Order name: Labs collected and sent; Complete Time: 08:03 ec2 07/30 07:10 Order name: Suicide Precautions; Complete Time: 08:03 ec2 07/30 07:10 Order name: Suicide Screening ([place]); Complete Time: 08:03 ec2 07/30 07:13 Order name: Wound Care; Complete Time: 12:23 ec2 Administered Medications: 07:05 Drug: Ativan IVP 1 mg IVP once Route: IVP; Site: left antecubital; rs5 07:20 Follow up: Response: No adverse reaction; Pain is decreased rs5 07:10 Drug: NS 0.9% IV 1000 ml IV at 1000 ml once; to be given as a bolus over 60 minutes rs5 Route: IV; Rate: 1000 ml; Site: left antecubital; 08:07 Follow up: Response: No adverse reaction; IV Status: Completed infusion; IV Intake: rs5 999ml 07:22 Drug: Boostrix Tdap IM 0.5 ml IM once; as a single dose Route: IM; Site: left deltoid; rs5 08:00 Follow up: Response: No adverse reaction rs5 Disposition Summary: 07/30/24 08:14 Discharge Ordered Notes: Location: Home ec2 Condition: Stable ec2 Diagnosis - Finger Contusion ec2 Followup: ec2 - With: Private Physician - When: - Reason: Recheck today's complaints Discharge Instructions: - Discharge Summary Sheet ec2 - Crush Injury of the Hand, [id number] ec2 Forms: - Medication Reconciliation Form ec2 - Antibiotic Education ec2 - Prescription Opioid Use ec2 - Patient Portal Instructions ec2 - Leadership Thank You Letter ec2 Signatures: Dispatcher [employer] Codie Carlisle RN RN ha1 Lloyd Dutta RN RN rs5 Shaquille Mchugh MD MD ec2 Corrections: (The following items were deleted from the chart) 07:11 07:11 ACETAMINOPHEN+C.LAB.BRZ ordered. EDMS EDMS 07:11 07:11 BASIC METABOLIC PANEL+C.LAB.BRZ ordered. EDMS EDMS 07:11 07:11 CBC+H.LAB.BRZ ordered. EDMS EDMS 07:11 07:11 ETHANOL+C.LAB.BRZ ordered. EDMS EDMS 07:11 07:11 HEPATIC FUNCTION+C.LAB.BRZ ordered. EDMS EDMS 07:11 07:11 PROTIME (+INR)+COAG.LAB.BRZ ordered. EDMS EDMS 07:11 07:11 Test, Urine+UC.LAB.BRZ ordered. EDMS EDMS 07:11 07:11 PTT, ACTIVATED+COAG.LAB.BRZ ordered. EDMS EDMS 07:11 07:11 SALICYLATE+C.LAB.BRZ ordered. EDMS EDMS 07:11 07:11 Urinalysis+U.LAB.BRZ ordered. EDMS EDMS 07:11 07:11 URINE DRUG SCREEN+UC.LAB.BRZ ordered. EDMS EDMS 07:12 07:11 Patient arrives today for evaluation of a finger injury to the right pinky ec2 finger. Accidentally caught her finger in a closing door. Patient also reports suicidal ideation, states no specific plan however has been having feelings of hopelessness and issues with her personal life.. ec2 07:13 07:12 Constitutional: GEN: NAD Head: atraumatic Eyes: EOMI Ears: External ears are ec2 normal. CV: Tachycardic LUNGS: no respiratory distress ABD: non-distended SKIN: no evidence of rashes MSK: no evidence of trauma. Psych: Inebriated individual who is emotionally labile and tearful ec2
[2024-07-30 09:23] VITALS: TEMP 98.4
[2024-07-30 09:27] VITALS: BP 125/88; O2SAT 99
--- NOTE | 2024-08-11 11:25 | EKG ---
Test Date: 2024-07-30 Test Time: 07:51:55 Basket Hand Weaver: WILFREDO MEASUREMENT RESULTS: Intervals: Rate: 120 MO: 148 QRSD: 78 QT: 324 QTc: 457 [place]: P: 61 MO: 148 QRS: 76 T: 16 INTERPRETIVE STATEMENTS: Sinus tachycardia T wave abnormality, consider anterior ischemia Abnormal ECG Compared to ECG 08/25/2018 23:35:53 T-wave abnormality now present Possible ischemia now present Sinus rhythm no longer present Electronically Signed On 08-11-24 11:16:34 [employer] OPERATOR by Ryley Jackson
== END 2024-07-30 08:36 | disposition home or self-care (01) ==
LOC: ER 06:50
DX: S60.051A Contusion of right little finger without damage to nail, initial encounter (principal); R45.851 Suicidal ideations
CPT/HCPCS: 36415; 80048; 80076; 80143; 80179; 80307; 81001; 81025; 82077; 85025; 85610; 85730; 93005; 96361; 96372; 96374; 99284; J7030

== ENCOUNTER 2024-11-20 10:00 | Emergency (ER) | payer SELFPAY ==
--- OUTSIDE RECORDS SUMMARY | 2024-11-20 10:08 | XMS REPORT | Continuity of Care Document ---
Author Name Unknown Address [address] [facility] [place] [address] Organization [facility] [place] Address [address] [facility] [place] [address] Care Team Providers Care Taxation Agent Name Role Phone PORFIRIO Bonner [facility], [facility] Care Physician Unavailable Amanda Light Attending Clinician [phone] AMANDA MCCURDY Attending Clinician Unavailabl e SAV Attending Clinician Unavaila ble SAV Admitting Clinician Javiera scott Payers Payer Name Policy Type Policy Number Effective Date Expirati on Date Source [employer]IG[employer] II [id number] 2021 00:00:00 Problems Condition Name Condition Details Condition Category Status Onset Date Resolution Date Last Treatment Date Treating Clinician Comments Source No known active problems No known active problems Disease [facility] Allergies, Adverse Reactions, Alerts Allergy Name Allergy Type Status Severity Reaction(s) Onset Date Inactive Date Treating Clinician Comments Source NO KNOWN ALLERGIE S Drug Class Active [facility] Social History Social Habit Start Date Stop Date Quantity Comments Source Exposure to SARS-CoV-2 (event) Not sure [facility] Sex Assigned At 2005 00:00:00 2005 00:00:00 [facility] Smoking Status Start Date Stop Date Source Unknown if ever smoked [facility] Medications Ordered Medication Name Filled Medication Name Start Date Stop Date Current Medication? Ordering Clinician Indication Dosage Frequency Signature (SIG) Comments Components Source meclizine 25 mg tablet 11-04 00:00: 00 Yes [id number] 25mg Take 1 tablet by mouth 3 (three) times daily as needed for Dizziness. [facility] ARIPiprazol e 15 mg tablet 10-12 00:00: 00 Yes 15mg Take 15 mg by mouth daily. [facility] escitalopra m oxalate 20 mg tablet 10-05 00:00: 00 Yes 20mg Take 20 mg by mouth at bedtime. [facility] Vital Signs Vital Name Observation Time Observation Value Comments S rosita Systolic blood pressure 2021-11-04 17:12:00 111 mm[Hg] [facility] Diastolic blood pressure 2021-11-04 17:12:00 66 mm[Hg] [facility] Heart rate 2021-11-04 17:12:00 76 /min [facility] Body temperature 2021-11-04 17:12:00 36.94 Alyx [facility] Respiratory rate 2021-11-04 17:12:00 18 /min [facility] Body height 2021-11-04 17:12:00 153 cm [facility] Body weight 2021-11-04 17:12:00 86.909 kg [facility] BMI 2021-11-04 17:12:00 37.13 kg/m2 [facility] Body mass index (BMI) [Percentile] Per age and sex 2021-11-04 17:12:00 98.65 % [facility] Oxygen saturation in Arterial blood by Pulse oximetry 2021-11-04 17:12:00 100 /min [facility] Procedures Procedure Date / Time Performed Performing Clinicia n Source POCT MOLECULAR STREP 2021-11-04 17:19:00 Lily Mccurdy [facility] Encounters Start Date/Time End Date/Time Encounter Type Admission Type Attending Clinicians Care Facility Care Department Encounter ID Source 2022-09-07 15:48:10 2022-09-07 15:48:10 Outpatient [facility] [id number] Porfirio Marsh 2022-05-11 14:53:11 2022-05-11 14:53:11 Outpatient [facility] [id number] Porfirio Marsh 2022-05-09 08:01:24 2022-05-09 08:01:24 Outpatient [facility] [id number] Porfirio Marsh 2021-11-04 12:00:00 2021-11-04 12:56:59 Urgent Care Amanda Mccurdy [facility] [id number] [facility] 2021-11-04 12:00:00 2021-11-04 12:56:59 Outpatient R CALLI AMANDA [facility] [id number] [facility] 2021-08-24 04:37:00 2021-08-24 04:37:00 Outpatient AKANKSHA CONTRERAS [facility] [id number] [facility] Results Test Description Test Time Test Comments Results Result Co mments Source COMPREHENSIVE METABOLIC [id number] 03:01:08* Test Item Value Reference Range Interpretation Comme nts GLUCOSE (test code = 2217) 84 MG/DL 70-99 BUN (test code = 2208) 7 MG/DL 5-18 CREATININE (test code = 2214) 0.65 MG/DL 0.50-1.10 eGFR (2020 CKD-EPI) (test code = 52085) NO CALC ML/MIN/1.73 >60 NOTE: 2020 CKD-EPI [...] 6.9 G/DL 6.0-8.0 ALBUMIN (test code = 220) 4.3 G/DL 3.6-5.2 CALC GLOBULIN (test code [...] 88 U/L 53-138 AST (test code = 221) 16 U/L 9-48 ALT (test code = 2219) 19 U/L 5-45 LIPID [id number] 03:01:08* Test Item Value Reference Range Interpretation [...] SPECIMENS. FOR MOREINFORMATION, SEE CLIENT ANNOUNCEMENT AT [email or web address] [email or web address] RATIO LDL/HDL (test code = 223) 2.33 RATIO <3.22 HEMOGLOBIN [id number] 02:23:14* Test Item Value Reference Range Interpretation Comme nts HEMOGLOBIN A1c (test code = 73704) 5.2 % 4.2-5.6 CBC W/AUTO DIFF WITH [id number] 02:02:15* Test Item Value Reference Range Interpretation [...] = 1065) 0.0 /100 WBC'S See_Comment [Automated BackTypea ge] The system which generated this result [...] 0.00-0.10 ABS NUCLEATED RBCS (test code = 99659) 0.00 K/UL 0.00-0.13 POCT MOLECULAR [id number] 17:29:54* Test Item Value Reference Range Interpretation Comme nts POCT Molecular Strep (test c ode = 73718-6) Negative Negative Lab Interpretation (test cod e = 38807-9) Normal [facility]
[2024-11-20] MEDS ORDERED: NA CHLORIDE 0.9% 1,000 ML ONE (10:52)
[2024-11-20] MEDS ORDERED: ONDANSETRON 4 MG/2 ML VIAL ONE (10:52)
[2024-11-20 10:57] LABS: Specific Gravity 1.014 (1.005-1.030)
[2024-11-20 10:59] LABS: Specific Gravity 1.014 (1.005-1.030); Urine Bacteria None Seen /HPF (<20); Urine Bilirubin NEGATIVE (Negative); Urine Blood 3+ (OVER) (Negative); Urine Clarity Extremely Turbid (Clear); Urine Color Brown (Yellow); Urine Culture Reflex Order REFLEXED; Urine Glucose NEGATIVE (Negative); Urine Ketones NEGATIVE (Negative); Urine Microscopic Reflex YN ORDER UMIC; Urine Mucus 1+ /HPF (None Seen); Urine Nitrite NEGATIVE (Negative); Urine Protein TRACE (Negative); Urine RBC >50 /HPF (None Seen); Urine Urobilinogen Normal (Normal); Urine WBC 20-50 /HPF (<5); Urine WBC Clump Few /HPF (None Seen)
[2024-11-20 11:01] LABS: Absolute Eosinophils 0.1 K/uL (0-0.5); Absolute Monocytes 0.7 K/uL (0.1-1.3); Absolute Neutrophil 5.2 K/uL (1.8-8.0); Basophils % 0.3 % (0-1.3); Eosinophils % 1.7 % (0-4.4); Hematocrit 42.2 % (36.0-45.0); Hemoglobin 14.6 g/dL (12.0-15.0); Lymphocytes % 24.9 % (15.3-44.8); MCH 30.3 pg (27.0-35.0); MCHC 34.7 g/dL (32.0-36.0); MCV 87.4 fL (80-100); MPV 9.4 fL (7.6-11.3); Monocytes % 8.7 % (3.3-12.3); Neutrophils % 64.4 % (41.7-73.7); Nucleated Red Blood Cells % 0.1 % (0-0); Platelets 215 thou/uL (152-406); RBC Red Blood Cell Count 4.83 M/uL (3.86-4.86); Red Cell Distribution Width 13.7 % (12.1-15.2)
[2024-11-20 11:21] LABS: ALT/SGPT 18 U/L (13-56); AST/SGOT < 10 U/L (15-37); Albumin 3.9 g/dL (3.4-5.0); Albumin/Globulin Ratio 1.1 (1.1-1.8); Alkaline Phosphatase 73 U/L (45-117); Anion Gap 10.3 mEq/L (5.0-15.0); BUN Blood Urea Nitrogen 7 mg/dL (7-18); Bicarbonate 24 mEq/L (21-32); Bilirubin Total 1.1 mg/dL (0.2-1.0); Globulin 3.4 g/dL (2.3-3.5); Glomerular Filtration Rate 106 ml/min (=/>90); Glucose Level 99 mg/dL (74-106); Lipase 23 U/L (13-75); Potassium 3.3 mEq/L (3.5-5.1); Protein, Total 7.3 g/dL (6.4-8.2); Sodium Level 140 mEq/L (136-145)
--- NOTE | 2024-11-20 11:32 | RAD REPORT ---
EXAMINATION: Stone Protocol CLINICAL INDICATION: Abdominal pain. Flank pain TECHNIQUE: CT abdomen and pelvis was performed, without IV contrast, as per department protocol. Oral contrast not given. Axial, sagittal and coronal reconstructions were obtained. One or more of the following dose reduction techniques were used: Automated exposure control, adjustment of the mA and k V according to the patient size, and iterative reconstruction. Unless otherwise specified, incidental findings do not require dedicated imaging follow-up. COMPARISON: 2023 FINDINGS: The lack of intravenous and oral contrast limits the sensitivity of this exam for evaluation of solid visceral organs, vascular structures, and bowel A renal calculus not seen. No ureteral calculus. A bladder calculus not noted. No hydronephrosis Liver, spleen, pancreas and adrenals grossly normal No evidence of diverticulitis. Normal appendix No adnexal mass seen. Spondylolysis L5 IMPRESSION: Negative for a genitourinary calculus
--- NOTE | 2024-11-20 12:01 | ER ---
Nurse's Notes [facility] Name: Jazmín Tobin Age: 18 yrs Sex: Female : 2005 Arrival Date: 11/20/2024 Time: 10:00 Bed 11 Private MD: Diagnosis: UTI/ Urinary tract infection, site not specified;Nausea with vomiting, unspecified;Dysuria Presentation: 11/20 10:22 Chief complaint: Patient states: R flank pain that began 5 days ago, nausea that began ss this morning. Coronavirus screen: Client denies travel out of the [place] in the last 14 days. Ebola Screen: Patient denies exposure to infectious person. Patient denies travel to an Ebola-affected area in the 21 days before illness onset. Initial Sepsis Screen: Does the patient meet any 2 criteria? No. Patient's initial sepsis screen is negative. Does the patient have a suspected source of infection? No. Patient's initial sepsis screen is negative. Risk Assessment: Do you want to hurt yourself or someone else? Patient reports no desire to harm self or others. Onset of symptoms was November 15, 2024. 10:22 Method Of Arrival: Ambulatory ss 10:22 Acuity: ROMAN 3 ss SUPERVISOR BLOOD DONOR RECRUITERS: 10:23 LMP 11/20/2024, unknown ss Historical: - Allergies: 10:23 No Known Allergies; ss - Home Meds: 10:23 None [Active]; ss - PMHx: 10:23 Depression; Heart Murmur; ss - PSHx: 10:23 None; ss - Immunization history:: Client reports having NOT received the Covid vaccine. - Infectious Disease History:: Denies. - Social history:: Smoking status: Reported history of juuling and/or vaping. Patient uses street drugs, marijuana. - Family history:: not pertinent. Assessment: 11:03 Reassessment: Pt to CT now VIA stretcher with assistive technology specialist. Vital Signs: 10:22 BP 136 / 93; Pulse 80; Resp 14; Temp 98.6(O); Pulse Ox 99% on R/A; Weight 68.04 kg; ss Height 5 ft. 0 in. ; Pain 4/10; 10:22 Body Mass Index 29.29 (68.04 kg, 152.4 cm) - Percentile 92.1 % ss 10:22 Pain Scale: Adult ss ED Course: 10:02 Patient arrived in ED. im 10:12 Ajit Howard MD is Attending Physician. [facility] 10:23 Triage completed. ss 10:23 Arm band placed on left wrist. ss 10:43 Susan Dean, RN is Primary Nurse. ss 10:44 Test, Urine Sent. ss 10:44 Urinalysis w/ reflexes Sent. ss 10:55 CBC with Diff Sent. ss 10:55 CMP Sent. ss 10:55 Lipase Sent. ss 11:08 CT Stone Protocol In Process Unspecified. EDMS 11:59 Ezequiel Stephens MD is Referral Physician. [facility] 13:34 No provider procedures requiring assistance completed. Patient did not have IV access ss during this emergency room visit. Administered Medications: 11:03 Drug: Ondansetron IVP 4 mg IVP once; over 2 minutes Route: IVP; Site: right antecubital;ss 12:31 Follow up: Response: No adverse reaction ss 11:03 Drug: NS 0.9% IV 1000 ml IV at 1 bolus Per protocol; to be given as a bolus over 60 ss minutes Route: IV; Rate: 1 bolus; Site: right antecubital; 13:34 Follow up: IV Status: Completed infusion; IV Intake: 1000ml 12:45 Drug: Ciprofloxacin PO 500 mg PO once Route: PO; ss 13:34 Follow up: Response: No adverse reaction 12:46 Drug: Rocephin IV 1 grams IV at per protocol once; Given slow IV push per pharmacy ss instructions Route: IV; Rate: per protocol; Site: right antecubital; 13:34 Follow up: IV Status: Completed infusion ss Intake: 13:34 IV: 1000ml; Total: 1000ml. Outcome: 12:00 Discharge ordered by . [facility] 13:34 Discharged to home ambulatory, 13:34 Condition: good 13:34 Discharge instructions given to patient, Instructed on discharge instructions, follow up and referral plans. medication usage, Demonstrated understanding of instructions, follow-up care, medications, Prescriptions given X 4, 13:35 Patient left the ED. ss Signatures: Dispatcher [employer] EDMI Ajit Howard MD MD cha Blanchard, Shelby, RN RN Kimberly Spicer im
--- NOTE | 2024-11-20 12:01 | EDPHYS ---
Physician Documentation [facility] Name: Jazmín Tobin Age: 18 yrs Sex: Female : 2005 Arrival Date: 11/20/2024 Time: 10:00 Bed 11 Private MD: ED Physician Ajit Howard HPI: 11/20 11:55 This 18 yrs old Female presents to ER via Ambulatory with complaints of Flank marco Pain, Nausea. 11:55 The patient complains of pain in the right mid back and right low back. The pain does marco not radiate. Onset: The symptoms/episode began/occurred 3 day(s) ago. Modifying factors: The symptoms are alleviated by nothing. the symptoms are aggravated by nothing. Associated signs and symptoms: The patient has no apparent associated signs or symptoms. Severity of pain: At its worst the pain was mild moderate in the emergency department the pain is unchanged. The patient has not experienced similar symptoms in the past. dysuria , right flank pain. 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 - Infectious Disease History:: Denies. - Social history:: Smoking status: Reported history of juuling and/or vaping. Patient uses street drugs, marijuana. - Family history:: not pertinent. ROS: 11:55 Constitutional: Negative for fever, chills, and weight loss, Eyes: Negative for injury, marco pain, redness, and discharge, ENT: Negative for injury, pain, and discharge, Neck: Negative for injury, pain, and swelling, Cardiovascular: Negative for chest pain, palpitations, and edema, Respiratory: Negative for shortness of breath, cough, wheezing, and pleuritic chest pain, Abdomen/GI: Negative for abdominal pain, nausea, vomiting, diarrhea, and constipation, MS/Extremity: Negative for injury and deformity, Skin: Negative for injury, rash, and discoloration, Neuro: Negative for headache, weakness, numbness, tingling, and seizure, Psych: Negative for depression, anxiety, suicide ideation, homicidal ideation, and hallucinations, Allergy/Immunology: Negative for hives, rash, and allergies, Endocrine: Negative for neck swelling, polydipsia, polyuria, polyphagia, and marked weight changes, Hematologic/Lymphatic: Negative for swollen nodes, abnormal bleeding, and unusual bruising, 11:55 Back: Positive for pain at rest, flank pain, Negative for injury or acute deformity, decreased range of motion, pain at rest, pain with movement, radiated pain, acute changes, Exam: 11:55 Constitutional: This is a well developed, well nourished patient who is awake, alert, marco and in no acute distress. Head/Face: Normocephalic, atraumatic. Eyes: Pupils equal round and reactive to light, extra-ocular motions intact. Lids and lashes normal. Conjunctiva and sclera are non-icteric and not injected. Cornea within normal limits. Periorbital areas with no swelling, redness, or edema. ENT: Nares patent. No nasal discharge, no septal abnormalities noted. Tympanic membranes are normal and external auditory canals are clear. Oropharynx with no redness, swelling, or masses, exudates, or evidence of obstruction, uvula midline. Mucous membranes moist. Neck: Trachea midline, no thyromegaly or masses palpated, and no cervical lymphadenopathy. Supple, full range of motion without nuchal rigidity, or vertebral point tenderness. No Meningismus. Chest/axilla: Normal chest wall appearance and motion. Nontender with no deformity. No lesions are appreciated. Cardiovascular: Regular rate and rhythm with a normal S1 and S2. No gallops, murmurs, or rubs. Normal PMI, no JVD. No pulse deficits. Respiratory: Lungs have equal breath sounds bilaterally, clear to auscultation and percussion. No rales, rhonchi or wheezes noted. No increased work of breathing, no retractions or nasal flaring. Abdomen/GI: Soft, non-tender, with normal bowel sounds. No distension or tympany. No guarding or rebound. No evidence of tenderness throughout. Skin: Warm, dry with normal turgor. Normal color with no rashes, no lesions, and no evidence of cellulitis. MS/ Extremity: Pulses equal, no cyanosis. Neurovascular intact. Full, normal range of motion., bilateral aka Neuro: Awake and alert, GCS 15, oriented to person, place, time, and situation. Cranial nerves II-XII grossly intact. Motor strength 5/5 in all extremities. Sensory grossly intact. Cerebellar exam normal. Normal gait. Psych: Awake, alert, with orientation to person, place and time. Behavior, mood, and affect are within normal limits. 11:55 Back: pain, that is very mild, ROM is painless, normal spinal alignment noted, CVA tenderness, is absent, muscle spasm, is not present, Vital Signs: 10:22 BP 136 / 93; Pulse 80; Resp 14; Temp 98.6(O); Pulse Ox 99% on R/A; Weight 68.04 kg; ss Height 5 ft. 0 in. ; Pain 4/10; 10:22 Body Mass Index 29.29 (68.04 kg, 152.4 cm) - Percentile 92.1 % ss 10:22 Pain Scale: Adult ss MDM: 10:12 Medical Screening Exam initiated marco 11:57 Data reviewed: vital signs, nurses notes, lab test result(s), EKG, radiologic studies, marco CT scan. Consideration of Admission/Observation Escalation of care including admission/observation considered. I considered the following discharge prescriptions or medication management in the emergency department Medications were administered in the Emergency Department. See MAR. Independent interpretation of the following test(s) in the Emergency Department CT Scan: My interpretation is ct stone. Test considered but Not performed: Ultrasound no renal usg. Historians other than the Patient: pt well informed. Care significantly affected by the following chronic conditions: depression, murmur. Counseling: I had a detailed discussion with the patient and/or guardian regarding the historical points, exam findings, and any diagnostic results supporting the discharge/admit diagnosis, lab results, radiology results, the need for outpatient follow up, for definitive care, a family practitioner, a urologist. 11/20 10:13 Order name: CBC with Diff; Complete Time: 11: [facility] 11/20 10:13 Order name: CMP; Complete Time: : [facility] 11/20 10:13 Order name: Lipase; Complete Time: : [facility] 11/20 10:13 Order name: Test, Urine; Complete Time: 11: [facility] 11/20 10:13 Order name: Urinalysis w/ reflexes; Complete Time: 11: marco 11/20 11:02 Order name: Urine Culture [facility] 11/20 10:13 Order name: CT Stone Protocol; Complete Time: 11:33 [facility] 11/20 10:13 Order name: IV Saline Lock; Complete Time: 10:55 [facility] 11/20 10:13 Order name: Labs collected and sent; Complete Time: 10:55 [facility] Administered Medications: 11:03 Drug: Ondansetron IVP 4 mg IVP once; over 2 minutes Route: IVP; Site: right antecubital;ss 12:31 Follow up: Response: No adverse reaction 11:03 Drug: NS 0.9% IV 1000 ml IV at 1 bolus Per protocol; to be given as a bolus over 60 ss minutes Route: IV; Rate: 1 bolus; Site: right antecubital; 13:34 Follow up: IV Status: Completed infusion; IV Intake: 1000ml ss 12:45 Drug: Ciprofloxacin PO 500 mg PO once Route: PO; ss 13:34 Follow up: Response: No adverse reaction 12:46 Drug: Rocephin IV 1 grams IV at per protocol once; Given slow IV push per pharmacy ss instructions Route: IV; Rate: per protocol; Site: right antecubital; 13:34 Follow up: IV Status: Completed infusion ss Disposition Summary: 11/20/24 12:00 Discharge Ordered Notes: Location: Home marco Problem: new marco Symptoms: have improved marco Condition: Stable marco Diagnosis - UTI/ Urinary tract infection, site not specified marco - Nausea with vomiting, unspecified marco - Dysuria marco Followup: marco - With: Private Physician - When: 2 - 3 days - Reason: Recheck today's complaints, Continuance of care, Re-evaluation by your physician Followup: marco - With: Ezequiel Stephens MD - When: 2 - 3 days - Reason: Recheck today's complaints, Re-evaluation by your physician Discharge Instructions: - Discharge Summary Sheet marco - Dysuria marco - Nausea and Vomiting, Adult marco - Nausea, Adult marco - Urinary Tract Infection, Adult marco - Nausea and Vomiting, Adult, [id number] marco - Urinary Tract Infection, Adult, [id number] marco Forms: - Medication Reconciliation Form marco - Antibiotic Education marco - Prescription Opioid Use marco - Patient Portal Instructions [facility] - Leadership Thank You Letter [facility] Prescriptions: - cefdinir 300 mg Oral capsule - take 1 capsule ORAL route 2 times per day for 7 days; 14 capsule; Refills: 0, [facility] Product Selection Permitted - ondansetron 4 mg Oral Tablet,disintegrating - take 1 tablet ORAL route every 6-8 hours prn; 20 tablet; Refills: 0, Product [facility] Selection Permitted - Cipro 250 mg Oral tablet - take 1 tablet ORAL route every 12 hours; 14 tablet; Refills: 0, Product [facility] Selection Permitted - Ibuprofen 600 mg Oral Tablet - take 1 tablet ORAL route every 6 hours As needed take with food; 30 tablet; [facility] Refills: 0, Product Selection Permitted Signatures: Dispatcher [employer] Ajit Collins MD MD cha Blanchard, Shelby RN RN ss Corrections: (The following items were deleted from the chart) 10:13 10:13 [place] Protocol+CT.RAD.BRZ ordered. ALEXI TRUONG
[2024-11-20] MEDS ORDERED: CIPROFLOXACIN HCL 500 MG TAB ONE (12:35)
[2024-11-20] MEDS ORDERED: CEFTRIAXONE 1000 MG/VIAL ONE (12:35)
[2024-11-20] MEDS ORDERED: NA CHLORIDE 0.9% 50 ML ONE (12:35)
[2024-11-20 14:03] VITALS: BP 136/93; TEMP 98.6; O2SAT 99
== END 2024-11-20 13:35 | disposition home or self-care (01) ==
LOC: ER 10:00
DX: N39.0 Urinary tract infection, site not specified (principal); R11.2 Nausea with vomiting, unspecified
CPT/HCPCS: 36415; 74176; 76377; 80053; 81001; 81025; 83690; 85025; 87086; 87088; 96361; 96365; 96375; 99284; J0696; J2405; J7030